=== PATIENT | female | born 1990 | race Caucasian/White ===

== ENCOUNTER 2016-05-31 07:10 | Inpatient (IN) | payer OTHER ==
[~2016-05-31] VITALS: Ht 170.2 cm; Wt 81.4 kg
[~2016-05-31 07:10] MED LIST: PREN-39 PO
[2016-05-31 07:25] VITALS: Ht 170.2 cm; Wt 81.4 kg
--- NOTE | 2016-05-31 08:27 | RADRPT ---
PROCEDURE: OB ultrasound for biophysical profile CLINICAL INDICATION: Low-lying placenta TECHNIQUE: Multiple sonographic images of the pelvis were obtained. Transabdominal views of the g ravid uterus are available for review. The images were reviewed on a PACS workstation. COMPARISON: None FINDINGS: breathing movement = 2/2 tone = 2/2 motion = 2/2 ETHAN = 2/2 ETHAN = 9.5 cm Single live intrauterine with cardiac activity of 136 bpm. position is cephal ic. The placenta is posterior. IMPRESSION: 1. Single live intrauterine gestation. 2. Biophysical profile = 8/8. 3. ETHAN = 9.5 cm. RPTAT: HH .Bel Martínez MD, MD Date Time Electronically viewed and signed by .Bel Martínez MD, on 05/31/2016 08:27 .G/
--- NOTE | 2016-05-31 08:33 | RADRPT ---
PROCEDURE: US OB. CLINICAL INDICATION: Low-lying placenta TECHNIQUE: Multiple sonographic images of the pelvis were obtained. Transabdominal and endovagina l imaging was performed. The images were reviewed on a PACS workstation. COMPARISON: No prior studies are available for comparison. FINDINGS: There is a single live intrauterine gestation. Cardiac activity is present with 148 beats per minut e. position is cephalic. Measurements were made in order to determine age. The results are as follows: BPD = 9.10 cm HC = 32.82 cm AC = 34.46 cm FL = 7.25 cm. Estimated gestational age of approximately 37 weeks 3 days. The estimated date of delivery is 06/18/2016. The EFW = 3306 g, 28.1 %ile. The placenta is posterior. There is no evidence for an abruption or placenta previa. There are no adnexal masses. IMPRESSION: 1. Single live intrauterine gestation of approximately 37 weeks 3 days, by ultrasound criteria. 2. The estimated date of delivery is 06/18/2016. 3. The estimated weight is 3306 g, 28.1 %ile. 4. Posterior placenta. No sonographic evidence of placental previa. RPTAT: HH .Bel Martínez MD, Date Time Electronically viewed and signed by .Bel Martínez MD, on 05/31/2016 08:33 .G/
[2016-05-31] MEDS ORDERED: DEXTROSE 5%-LR 1,000 ML IV SCH (08:51)
[2016-05-31] MEDS ORDERED: LACTATED RINGER'S 1,000 ML IV SCH ×2 (08:51)
[2016-05-31] MEDS ORDERED: LACTATED RINGER'S 1,000 ML IV PRN (09:00)
[2016-05-31] MEDS ORDERED: BUTORPHANOL 2 MG INJ IV PRN ×2 (09:00)
[2016-05-31] MEDS ORDERED: CARBOPROST 250 MCG INJ IM PRN (09:00)
[2016-05-31] MEDS ORDERED: OXYTOCIN 30 UNITS/LR 500 ML IV PRN (09:00)
[2016-05-31] MEDS ORDERED: LIDOCAINE 1% (MPF) 30 ML INJ INJ PRN (09:00)
[2016-05-31] MEDS ORDERED: METHYLERGONOVINE 0.2 MG INJ IM PRN (09:00)
[2016-05-31] MEDS ORDERED: MISOPROSTOL 200 MCG TAB PR PRN (09:00)
[2016-05-31] MEDS ORDERED: OXYTOCIN 30 UNITS/LR 500 ML IVPB ONE (09:30)
[2016-05-31 09:33] LABS: BASOPHILS % 0.3 % (0.0-2.0); EOSINOPHILS % 0.4 % (0.0-7.0); HEMATOCRIT 36.9 % (37.0-47.0); HEMOGLOBIN 12.8 g/dl (12.0-16.0); LYMPHOCYTES # 1.5 10^3/ul (0.8-2.9); LYMPHOCYTES % 15.5 % (15.0-51.0); MEAN CORPUSCULAR HEMOGLOBIN 31.1 pg (29.0-33.0); MEAN CORPUSCULAR HGB CONC 34.6 g/dl (32.0-37.0); MEAN CORPUSCULAR VOLUME 90.2 fl (82.0-101.0); MEAN PLATELET VOLUME 7.8 fl (7.4-10.4); MONOCYTE # 0.6 10^3/ul (0.3-0.9); MONOCYTES % 6.6 % (0.0-11.0); NEUTROPHIL # 7.5 10^3/ul (1.6-7.5); NEUTROPHILS % 77.2 % (39.0-77.0); PLATELET COUNT 231 10^3/UL (140-440); RED BLOOD COUNT 4.09 10^6/ul (4.20-5.40); RED CELL DISTRIBUTION WIDTH 13.2 % (11.5-14.5); UNCORRECTED WBC 9.7 10^3/ul (4.8-10.8); WHITE BLOOD COUNT 9.7 10^3/ul (4.8-10.8)
[2016-05-31 09:52] LABS: CONDITION 1
[2016-05-31 09:54] LABS: INR 0.95; PARTIAL THROMBOPLASTIN TIME 24.8 Sec (25.0-35.0); PROTIME 12.7 Sec (12.2-14.2)
[2016-05-31] MEDS: OXYTOCIN 30 UNITS/LR 500 ML IV SCH ×4 (09:59→15:12)
--- NOTE | 2016-05-31 10:24 | HP ---
Date/Time of Note Date/Time of Note DATE: 05/31/16 TIME: 10:20 OB - History Hx of Present Estimated Due Date: Jun 02, 2016 : 5 Para: 2 Spontaneous : 1 Therapeutic : 1 Care: Good Care Ultrasounds: Normal mid trimester US Obstetrical Complications: None Medical Complications: None Past Family/Social History * Past Medical, Surgical, Family and Obstetric Histories reviewed from chart. Blood Type: Unknown Rubella: immune RPR/VDRL: Negative GBS Status: Negative HBsAG: Negative OB Admission Exam Physical Exam HEENT: WNL Lungs: Clear, Equal Abdomen: WNL Extremities: Normal Reflexes: Normal Cervical Dilatation: 5cm Effacement: 100% Station: 0 Membranes: Intact Heart Rate: 130's Accelerations: Accelerations Present Decelerations: No Decelerations Varibility: Marked Contractions on Admission: < 5 Minutes Apart Intensity: Firm Last 72 hours Lab Results CBC & BMP 05/31/16 09:08 ROMMEL MAURER MD May 31, 2016 10:24
[2016-05-31] MEDS ORDERED: IBUPROFEN 600 MG TAB PO ONE (10:30)
--- NOTE | 2016-05-31 10:30 | LDN ---
Date/Time of Note Date/Time of Note DATE: 05/31/16 TIME: 10:25 Delivery Summary Normal spontaneous vaginal delivery of a baby boy from LOLIS position shoulders delivered with no difficulty followed with the rest of the baby's body Court clamped after stopped pulsation nasal oropharyngeal suction was performed baby handed to the team for immediate attention placenta spontaneous expulsion inspected complete patient sustained various small first-degree perineal laceration which repaired with 3-0 Vicryl estimated blood loss 200 mL Placenta Delivered: Spontaneously Meconium: none Anesthesia type: Local Sponge & Needle done & correct: Yes All needle counts correct: Yes Any foreign bodies felt in the: No Problems: Delivery Information Sex Infant Sex: male Apgars 1 Minute: 9 5 Minute: 9 Suctioning Nose & mouth suctioned at [place]ia: Yes Delee suction performed: No Umbilical Cord Umbilical cord with: 3 Vessels Cord presentations: no nuchal cord Cord Blood was obtained: Yes ROMMEL MAURER MD May 31, 2016 10:30
[2016-05-31 11:20] VITALS: BP 120/66; RESP 17
[2016-05-31] MEDS ORDERED: ONDANSETRON 4 MG INJ IV PRN (11:30)
[2016-05-31] MEDS ORDERED: DIBUCAINE 1% 30 GM OINT PR PRN (11:30)
[2016-05-31] MEDS ORDERED: ACETAMINOPHEN/CODEINE #3 TAB PO PRN ×2 (11:30)
[2016-05-31] MEDS ORDERED: OXYCODONE/ASPIRIN (4.88/325) TAB PO PRN ×2 (11:30)
[2016-05-31] MEDS ORDERED: ACETAMINOPHEN 325 MG TAB PO PRN (11:30)
[2016-05-31] MEDS ORDERED: BENZOCAINE 20% 56 ML SPRAY TOP PRN (11:30)
[2016-05-31] MEDS ORDERED: WITCH HAZEL/GLYCERIN PAD PR PRN (11:30)
[2016-05-31] MEDS ORDERED: LANOLIN 7 GM TUBE TOP PRN (11:30)
--- NOTE | 2016-05-31 11:37 | DELSUM ---
Delivery Summary A-C Datetime Report Generated by CPN: 05/31/2016 11:36 DELIVERY PERSONNEL Survey And Mapping Technician: Stefan Marroquina MATERNAL INFORMATION Delivery Anesthesia: None Medications in Delivery: PITOCIN 30 UNITS IN LR Estimated Blood Loss (ml): 200 Placenta Cultured: No Maternal Complications: None LABOR SUMMARY EDC: 06/02/2016 00:00 No. Babies in Womb: 1 Attempted: No Labor Anesthesia: None LABOR INFORMATION Reason for Induction: Not Applicable Onset of Labor: 05/31/2016 02:00 Complete Dilatation: 05/31/2016 09:48 Oxytocin: N/A Group B Beta Strep: Negative Antibiotics # of Doses: 0 Antibiotics Time of Last Dose: 0 Steroids Given: None Reason Steroids Not Administered: Not Applicable MEMBRANES Membranes Rupture Method: Artificial Rupture of Membranes: 05/31/2016 09:19 Amniotic Fluid Color: Clear Amniotic Fluid Amount: Small Amniotic Fluid Odor: None VAGINAL DELIVERY Episiotomy: None Laceration Extension: First Degree Laceration Type: Perineal Laceration Repair: Yes Initial Vag Sponge Count: 20 Final Vag Sponge Count: 20 Initial Vag Sharps Count: 1+2 Final Vag Sharps Count: 3 Sponge Count Correct: Yes Sharps Count Correct: Yes BABY A INFORMATION Infant Delivery Date/Time: 05/31/2016 09:52 Method of Delivery: Vaginal Born in Route : No : N/A Forceps: N/A Vacuum Extraction: N/A Shoulder Dystocia : N/A SHOULDER DYSTOCIA BABY A Infant Delivery Date/Time: 05/31/2016 09:52 PRESENTATION/POSITION BABY A Presentation: Cephalic Cephalic Presentation: Vertex Vertex Position: Left Occipital Posterior Breech Presentation: N/A PLACENTA INFORMATION BABY A Placenta Delivery Time : 05/31/2016 10:02 Placenta Method of Delivery: Spontaneous Placenta Status: Delivered SCORES BABY A Heart Rate 1 min: >100 bpm Resp Effort 1 min: Good Cry Reflex Irritability 1 min: Cough/Sneeze/Pulls Away Muscle Tone 1 min: Active Motion Color 1 min: Body [place], Extremit Blue Resuscitation Effort 1 min: Tactile Stimulation Heart Rate 5 min: >100 bpm Resp Effort 5 min: Good Cry Reflex Irritability 5 min: Cough/Sneeze/Pulls Away Muscle Tone 5 min: Active Motion Color 5 min: Body [place], Extremit Blue Resuscitation Effort 5 min: Tactile Stimulation INFANT INFORMATION BABY A Gestational Age at Delivery: 39.5 Infant Outcome : Liveborn Infant Condition : Stable Sex: Male IDENTIFICATION/MEDS BABY A ID Band Number: [id number] ID Band Location: Right Leg; Left Arm Sensor Applied: Yes Sensor Number: [id number] Sensor Location : Cord Clamp Vitamin K Given : Not Given Erythromycin Given: Not Given WEIGHT/LENGTH BABY A Birthweight (gm): 3675 Length (in): 20.00 CORD INFORMATION BABY A No. Cord Vessels: 3 Nuchal Cord : N/A Cord Blood Taken: Yes Suction: Mouth; Nose ASSESSMENT BABY A Complications: None Physical Findings at Delivery: Within Normal Limits Respirations: Appears Normal [place] Limousine/ALS Called : Yes Care By: Consuelo Power RN Transferred To: Remains with Mother
[2016-05-31 11:50] VITALS: BP 117/68; PULSE 65; RESP 17
[2016-05-31] MEDS: IBUPROFEN 600 MG TAB PO SCH ×2 (12:00→17:37)
[2016-05-31 15:50] VITALS: BP 108/55; RESP 17
[2016-05-31 20:00] VITALS: BP 107/55; PULSE 68; RESP 18
[2016-05-31] MEDS: SENNA/DOCUSATE NA (8.6MG/50MG) TAB PO SCH (21:08)
[2016-05-31 23:45] VITALS: BP 98/54; PULSE 65; RESP 17
[2016-06-01] MEDS: IBUPROFEN 600 MG TAB PO SCH ×4 (00:27→17:51)
[2016-06-01 04:00] VITALS: BP 106/60; PULSE 71; RESP 17
[2016-06-01 07:55] VITALS: BP 105/58; PULSE 65; RESP 18
[2016-06-01 08:27] LABS: BASOPHILS % 0.3 % (0.0-2.0); EOSINOPHILS # 0.1 10^3/ul (0.0-0.5); EOSINOPHILS % 1.5 % (0.0-7.0); HEMATOCRIT 32.6 % (37.0-47.0); HEMOGLOBIN 11.5 g/dl (12.0-16.0); LYMPHOCYTES % 29.9 % (15.0-51.0); MEAN CORPUSCULAR HEMOGLOBIN 31.7 pg (29.0-33.0); MEAN CORPUSCULAR HGB CONC 35.3 g/dl (32.0-37.0); MEAN PLATELET VOLUME 8.3 fl (7.4-10.4); MONOCYTE # 0.5 10^3/ul (0.3-0.9); MONOCYTES % 7.3 % (0.0-11.0); NEUTROPHIL # 4.1 10^3/ul (1.6-7.5); PLATELET COUNT 193 10^3/UL (140-440); RED BLOOD COUNT 3.62 10^6/ul (4.20-5.40); RED CELL DISTRIBUTION WIDTH 13.4 % (11.5-14.5); UNCORRECTED WBC 6.7 10^3/ul (4.8-10.8); WHITE BLOOD COUNT 6.7 10^3/ul (4.8-10.8)
[2016-06-01 08:32] LABS: CONDITION 1
[2016-06-01] MEDS: SENNA/DOCUSATE NA (8.6MG/50MG) TAB PO SCH ×2 (09:46→21:00)
[2016-06-01 16:05] VITALS: BP 115/57; PULSE 65; RESP 20
[2016-06-01 20:00] VITALS: BP 99/51; PULSE 65; RESP 19
--- NOTE | 2016-06-01 22:29 | PD.PPDC ---
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
--- NOTE | 2016-06-01 22:33 | DS ---
Date/Time of Note Date/Time of Note DATE: 06/01/16 TIME: 22:30 Obstetrical Discharge Record Final Diagnosis Final Diagnosis: Term delivered Vaginal Delivery Obstetrical Delivery: Spontaneous, Laceration, Repaired Complications Augmentation: Yes Induction: No Condition on Discharge Physical Assessment Last Vitals: BP= 99/51 T=98.3 Voiding: Yes Bowel Movement: Yes Breast: Soft, non-tender, Filling Fundus: Firm Calf Tenderness: No Patient Condition: Good ANKUR HAYES MD Jun 01, 2016 22:32
[2016-06-02] MEDS: IBUPROFEN 600 MG TAB PO SCH ×3 (00:29→12:00)
[2016-06-02 04:00] VITALS: BP 113/61; PULSE 65; RESP 18
[2016-06-02 07:50] VITALS: BP 123/71; PULSE 68; RESP 17
[2016-06-02] MEDS ORDERED: MEASLES,MUMPS,RUBELLA VACCINE INJ SC* ONE (09:00)
[2016-06-02] MEDS: SENNA/DOCUSATE NA (8.6MG/50MG) TAB PO SCH (09:19)
== END 2016-06-02 12:05 | disposition home or self-care (01) | DRG 775 ==
LOC: OBT 07:10 → L-D 07:10 → OBT 09:00 → L-D 09:02 → PP1 11:12
PROVIDERS: ADMIT Obstetrics & Gynecology; ATTEND Obstetrics & Gynecology
PROC: 10E0XZZ Delivery of Products of Conception, External Approach (ICD-10-PCS; principal; 2016-05-31)
PROC: 0HQ9XZZ Repair Perineum Skin, External Approach (ICD-10-PCS; 2016-05-31)
DX: O70.0 First degree perineal laceration during delivery (principal); Z37.0 Single live birth; Z3A.39 39 weeks gestation of pregnancy
CPT/HCPCS: 76815; 76818; 85025; 85610; 85730; 86592; 86900; 86901; 87340; G0463; J2590; J7120; J7121

== ENCOUNTER 2017-04-16 18:14 | Emergency (ER) | payer OTHER ==
[~2017-04-16] VITALS: Wt 66.7 kg
[2017-04-16] MEDS ORDERED: ACETAMINOPHEN 500 MG TAB PO STA (19:53)
[2017-04-16] MEDS ORDERED: ONDANSETRON (ODT) 4 MG TAB ODT STA (19:53)
--- NOTE | 2017-04-16 21:06 | ERD ---
ER Documentation Chief Complaint Chief Complaint ap with vomiting HPI This is a 26-year-old female presents the emergency department today complaining of throat for a month, vomiting, diarrhea that started today. States that she had some abdominal pain has improved. That she came to the emergency department because she had to bring her daughter to get her finger looked at and she thought she would "just get checked out". Denies any fevers or chills, dysuria. States she has not had her menstrual cycle for 11 months that she had her last child. 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 She has not taken any medication. ROS All systems reviewed and are negative except as per history of present illness. Medications Home Meds Active Scripts Acetaminophen* (Tylophen*) 500 Mg Capsule, 1 CAP PO Q6H Y for PAIN AND OR ELEVATED TEMP, #30 CAP Prov:COLLETTE RAYA PA-C 04/16/17 Ondansetron Hcl* (Zofran*) 4 Mg Tablet, 4 MG PO Q6H for NAUSEA AND/OR VOMITING, #30 TAB Prov:COLLETTE RAYA PA-C 04/16/17 Reported Medications Vits W-Ca,Fe,Fa(<1MG) ( Vitamins) 1 Tab Tablet, 1 TAB PO DAILY 03/20/15 Allergies Allergies: Coded Allergies: No Known Allergy (Unverified , 04/07/16) PMhx/Soc History of Surgery: Yes () Hx Alcohol Use: No Hx Substance Use: No Hx Tobacco Use: No Smoking Status: Never smoker Physical Exam Vitals Vital Signs Date Time Temp Pulse Resp B/P Pulse Ox O2 Delivery O2 Flow Rate FiO2 04/16/17 18:18 98.8 93 18 119/60 99 Physical Exam Const: NAD Head: Atraumatic Eyes: Normal Conjunctiva ENT: Ears TMs normal. Nose no drainage. Throat no erythema no exudate no vesicles Neck: Full range of motion..~ No meningismus. Resp: Clear to auscultation bilaterally Cardio: Regular rate and rhythm, no murmurs Abd: Soft, mild periumbilical tenderness non distended. Normal bowel sounds. No tenderness at McBurney's Skin: No petechiae or rashes Back: No midline or flank tenderness Ext: No cyanosis, or edema Neur: Awake and alert Psych: Normal Mood and Affect Results 24 hrs Laboratory Tests Test 04/16/17 21:20 Bedside Urine pH (LAB) 6.5 Bedside Urine Protein (LAB) Negative Bedside Urine Glucose (UA) Negative Bedside Urine Ketones (LAB) Negative Bedside Urine Blood Trace-intact Bedside Urine Nitrite (LAB) Negative Bedside Urine Leukocyte Esterase (L Negative Current Medications Medications (Trade) Dose Ordered Sig/Doe Route PRN Reason Start Time Stop Time Status Last Admin Dose Admin Acetaminophen (Tylenol Tab) 500 mg ONCE STAT PO 04/16/17 19:53 04/16/17 19:54 DC 04/16/17 20:16 Ondansetron HCl (Zofran Odt) 4 mg ONCE STAT ODT 04/16/17 19:53 04/16/17 19:54 DC 04/16/17 20:16 Procedures/MDM This is a 26-year-old female who presents the emergency department today complaining of sore throat and vomiting and diarrhea that started today. Patient had some mild periumbilical pain on physical exam. She did indicate that the pain had improved throughout the day. She stated that she needed to bring her daughter who injured her finger and so she just thought that she would "get checked out". Given patient's reports of vomiting and diarrhea her symptoms at this time the viral. Patient is afebrile and otherwise well- appearing. Do not feel that she requires laboratory workup or imaging at this time. Is no right upper quadrant pain and no right lower quadrant pain or tenderness at McBurney's and I low suspicion for acute surgical abdomen. Symptoms at this time is consistent with vomiting and diarrhea and sore throat. Low suspicion for strep pharyngitis, peritonsillar abscess or retropharyngeal abscess. Patient also reported that she did not have her menstrual cycle for the last 11 months. She did indicate that she is breast-feeding. Her test was negative. 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 UA is negative for infection. Patient was given Tylenol, Zofran here in the emergency department. She will be given a prescription for Tylenol, Zofran for home. At this time the patient is stable for discharge and outpatient management. Patient should follow up with their PCP in the next 1-2 days. They may return to the emergency department sooner for any persistent or worsening of symptoms. Patient understood and agreed with the plan. Departure Diagnosis: Primary Impression: Sore throat Additional Impression: Vomiting and diarrhea Condition: COLLETTE Mathews PA-C Apr 16, 2017 21:06
[2017-04-16 21:19] LABS: URINE BLOOD (Dip) POC Trace-intact (NEGATIVE)
[2017-04-16] MEDS ORDERED: ONDA4TAB8 PO (21:33)
[2017-04-16] MEDS ORDERED: ACET500C5 PO (21:33)
[2017-04-16 21:46] VITALS: BP 120/65; PULSE 88; RESP 18; TEMP 98.8
== END 2017-04-16 21:46 | disposition home or self-care (01) ==
LOC: FTE 18:14
DX: J02.9 Acute pharyngitis, unspecified (principal); R19.7 Diarrhea, unspecified
CPT/HCPCS: 81003; Z7502; Z7610; 99283

== ENCOUNTER 2017-12-29 04:33 | Emergency (ER) | END 2017-12-29 05:33 | disposition home or self-care (01) ==

== ENCOUNTER 2018-01-07 22:17 | Emergency (ER) | END 2018-01-08 01:23 | disposition left against medical advice (07) ==

== ENCOUNTER 2018-09-14 15:17 | Emergency (ER) | payer OTHER ==
[~2018-09-14] VITALS: Ht 170.2 cm; Wt 70.3 kg
[~2018-09-14 15:17] MED LIST changes: +ACET500C5 PO; +NITR-58 PO; +ONDA4TAB8 PO; +PHEN-538 PO
[2018-09-14 15:39] VITALS: BP 124/64; PULSE 76; RESP 18; Ht 170.2 cm; Wt 70.3 kg
[2018-09-14] MEDS ORDERED: D-ME118S24 PO (18:51)
[2018-09-14] MEDS ORDERED: ALBU18HF INHALATION (18:51)
--- NOTE | 2018-09-14 19:01 | ERD ---
ER Documentation Chief Complaint Chief Complaint cough x 2 weeks HPI 28-year-old female presents for cough x2 weeks. She states that 2 weeks ago she had a runny nose and a sore throat and a cough. The cough resolved however returned a week ago. She denies any other symptoms. Denies fevers or chills. Denies chest pain or shortness of breath. No treatment tried at home. No other modifying factors noted, no treatments tried at home. Denies significant past medical history. ROS All systems reviewed and are negative except as per history of present illness. Medications Home Meds Active Scripts Albuterol Sulfate* (Ventolin HFA*) 18 Gm Hfa.aer.ad, 2 PUFF INHALATION Q4H PRN for cough/shortness of breath, #1 INHALER Prov:NONIANJELICA 09/14/18 D-Methorphan Hb/P-Epd HCl/Bpm (Qtynswgqcv-Tutmphvprls-If Syr) 118 Ml Syrup, 5 ML PO Q4H PRN for COUGH for 10 Days, #1 BOTTLE Prov:ANJELICA CHENEY DO 09/14/18 Phenazopyridine Hcl* (Pyridium*) 200 Mg Tab, 200 MG PO TID PRN for URINARY PAIN, #6 TAB Prov:IRMA LU NP 12/29/17 Nitrofurantoin Monohyd Macrocr* (Macrobid*) 100 Mg Capsr, 100 MG PO BID for 7 Days, CAP Prov:IRMA LU NP 12/29/17 Acetaminophen* (Tylophen*) 500 Mg Capsule, 1 CAP PO Q6H PRN for PAIN AND OR ELEVATED TEMP, #30 CAP Prov:COLLETTE RAYA PA-C 04/16/17 Ondansetron Hcl* (Zofran*) 4 Mg Tablet, 4 MG PO Q6H for NAUSEA AND/OR VOMITING, #30 TAB Prov:COLLETTE RAYA PA-C 04/16/17 Reported Medications Vits W-Ca,Fe,Fa(<1MG) ( Vitamins) 1 Tab Tablet, 1 TAB PO DAILY 03/20/15 Allergies Allergies: Coded Allergies: No Known Allergy (Unverified , 12/29/17) PMhx/Soc History of Surgery: Yes () Anesthesia Reaction: No Hx Neurological Disorder: No Hx Respiratory Disorders: No Hx Cardiac Disorders: No Hx Psychiatric Problems: No Hx Miscellaneous Medical Probl: No Hx Alcohol Use: No Hx Substance Use: No Hx Tobacco Use: No Smoking Status: Never smoker FmHx Family History: No coronary disease Physical Exam Vitals Vital Signs Date Temp Pulse Resp B/P (MAP) Pulse Ox O2 O2 Flow FiO2 Time Delivery Rate 09/14/18 98.4 76 18 124/64 98 15:39 (84) Physical Exam Const: No acute distress Head: Atraumatic Eyes: Normal Conjunctiva ENT: Normal External Ears, bilateral tympanic membrane intact without erythema or bulging noted, nose and Mouth examination normal, no tonsillar swelling or exudate noted Neck: Full range of motion. No meningismus. Resp: Clear to auscultation bilaterally, no wheezing, rales, rhonchi Cardio: Regular rate and rhythm, no murmurs Skin: No petechiae or rashes Ext: No cyanosis, or edema Neur: Awake and alert Psych: Normal Mood and Affect Procedures/MDM Medical Decision Making: Differential diagnosis includes but not limited to upper respiratory infection, pneumonia, sepsis, meningitis, influenza. Patient appeared well on physical examination, nontoxic appearing. Lungs were clear to auscultation bilaterally. There is low suspicion for pneumonia, sepsis, meningitis. Patient likely has an upper respiratory infection, likely viral. Therefore antibiotics not indicated. Discussed symptomatic treatment with patient who agrees with plan. Patient given prescription for supportive medication(s). Patient advised to follow up with PCP in 1-2 days. Patient advised to return to ED for new or worsening symptoms. Patient stable on discharge from the ED. Disclaimer: Inadvertent spelling and grammatical errors are likely due to EHR/dictation software use and do not reflect on the overall quality of patient care. Also, please note that the electronic time recorded on this note does not necessarily reflect the actual time of the patient encounter. Departure Diagnosis: Primary Impression: Cough Condition: Fair Patient Instructions: Coughing Techniques Referrals: CONSTANTINO BUTLER (PCP) Additional Instructions: Call your primary care doctor TOMORROW for an appointment during the next 1-2 days.See the doctor sooner or return here if your condition worsens before your appointment time. ANJELICA CHENEY DO September 14, 2018 19:01
== END 2018-09-14 19:00 | disposition home or self-care (01) ==
LOC: FTE 15:17
DX: R05 Cough (principal)
CPT/HCPCS: 99283